=== PATIENT | female | born 1945 | race Caucasian/White ===

== ENCOUNTER → 2018-04-14 | Outpatient (CLI) | payer MEDICARE, OTHER ==
[~2018-04-14] MED LIST: ASPI81CH PO; ASPI81EC; CALCAVITD; CLOB.05TO; CONEST.625; CONEST.9 PO; Caltrate Plus1 EACH PO; Caltrate-600 W1 EACH PO; EPIPEN0.3 MG/0.3; FLUO.01TC; LEVOTHYROXINE; LEVSOD50 PO; MUPI1NAS; NITR100CA; PREMARIN
[2018-04-14 10:43] LABS: BASOPHILS ABSOLUTE AUTO 0.05 K/mm3 (0.00-0.23); BASOPHILS PERCENT AUTO 1 % (0-2); EOSINOPHILS ABSOLUTE AUTO 0.07 K/mm3 (0.00-0.68); EOSINOPHILS PERCENT AUTO 1 % (0-6); Hematocrit 45.4 % (33.0-51.0); Hemoglobin 15.2 g/dL (11.5-16.0); IMMATURE GRAN ABSOLUTE AUTO 0.03 K/mm3 (0.00-0.10); IMMATURE GRAN PERCENT AUTO 0 % (0-1); LYMPHOCYTES ABSOLUTE AUTO 2.28 K/mm3 (0.84-5.20); LYMPHOCYTES PERCENT AUTO 29 % (21-46); MONOCYTES ABSOLUTE AUTO 0.62 K/mm3 (0.16-1.47); MONOCYTES PERCENT AUTO 8 % (4-13); Mean Corpuscular HGB 30.5 pg (26.0-34.0); Mean Corpuscular HGB Conc 33.5 g/dL (31.5-36.5); Mean Corpuscular Volume 91 fL (80-100); Mean Platelet Volume 9.4 fL (9.1-12.4); NEUTROPHILS ABSOLUTE AUTO 4.79 K/mm3 (1.96-9.15); NEUTROPHILS PERCENT AUTO 61 % (41-73); Platelet Count 315 K/mm3 (150-400); RDW Coefficient Variation 13.7 % (11.7-14.2); RDW Standard Deviation 45.9 fL (35.1-46.3); Red Blood Cell Count 4.99 M/mm3 (3.80-5.20); White Blood Cell Count 7.84 K/mm3 (4.00-11.30)
[2018-04-14 10:57] LABS: Alanine Aminotransfer (ALT/SGP 21 U/L (12-78); Albumin, Blood 3.5 g/dL (3.4-5.0); Alk Phos 80 U/L (40-126); Anion Gap 7 mmol/L (6-16); Aspartate Aminotrans (AST/SGOT 12 U/L (12-37); Bilirubin, Total 0.2 mg/dL (0.1-1.0); Blood Urea Nitrogen 17 mg/dL (8-24); Bun/Creatinine Ratio 17.5 (12.0-20.0); CO2, Blood 29 mmol/L (21-32); Calcium, Blood 9.3 mg/dL (8.5-10.1); Chloride, Blood 105 mmol/L (98-108); Creatinine, Blood 0.97 mg/dL (0.40-1.00); Globulin, Blood 3.6 g/dL (2.2-4.0); Glomerular Filtration Rate 57 (60-); Glucose, Blood 102 mg/dL (70-99); Potassium, Blood 4.2 mmol/L (3.5-5.5); Sodium, Blood 141 mmol/L (136-145); Total Protein, Blood 7.1 g/dL (6.4-8.2)
[2018-04-14 10:58] LABS: Troponin I <0.017 ng/mL (0.000-0.040)
== END ==
LOC: LAB SHORT 10:39
PROVIDERS: Physician Assistant
DX: R07.9 Chest pain, unspecified (principal)
CPT/HCPCS: 80053; 83690; 84484; 85025; 85379; 85651

== ENCOUNTER → 2019-07-27 | Outpatient (CLI) | payer MEDICARE, OTHER ==
[2019-07-27 14:38] LABS: BASOPHILS ABSOLUTE AUTO 0.09 K/mm3 (0.00-0.23); BASOPHILS PERCENT AUTO 1 % (0-2); EOSINOPHILS PERCENT AUTO 3 % (0-6); Hematocrit 49.4 % (33.0-51.0); Hemoglobin 15.9 g/dL (11.5-16.0); IMMATURE GRAN PERCENT AUTO 1 % (0-1); LYMPHOCYTES ABSOLUTE AUTO 2.87 K/mm3 (0.84-5.20); LYMPHOCYTES PERCENT AUTO 36 % (21-46); MONOCYTES ABSOLUTE AUTO 1.74 K/mm3 (0.16-1.47); MONOCYTES PERCENT AUTO 22 % (4-13); Mean Corpuscular HGB 29.4 pg (26.0-34.0); Mean Corpuscular HGB Conc 32.2 g/dL (31.5-36.5); Mean Corpuscular Volume 92 fL (80-100); Mean Platelet Volume 10.1 fL (9.1-12.4); NEUTROPHILS ABSOLUTE AUTO 3.06 K/mm3 (1.96-9.15); NEUTROPHILS PERCENT AUTO 38 % (41-73); Platelet Count 353 K/mm3 (150-400); RDW Coefficient Variation 12.9 % (11.7-14.2); RDW Standard Deviation 43.5 fL (35.1-46.3); White Blood Cell Count 8.06 K/mm3 (4.00-11.30)
[2019-07-27 15:27] LABS: Alanine Aminotransfer (ALT/SGP 23 U/L (12-78); Albumin/Globulin Ratio 0.7 (0.8-1.8); Alk Phos 90 U/L (50-136); Anion Gap 8 mmol/L (6-16); Aspartate Aminotrans (AST/SGOT 7 U/L (12-37); Bilirubin, Total 0.2 mg/dL (0.1-1.0); Blood Urea Nitrogen 10 mg/dL (8-24); Bun/Creatinine Ratio 12.8 (12.0-20.0); CO2, Blood 27 mmol/L (21-32); Calcium, Blood 9.5 mg/dL (8.5-10.1); Chloride, Blood 104 mmol/L (98-108); Creatinine, Blood 0.78 mg/dL (0.40-1.00); Globulin, Blood 4.1 g/dL (2.2-4.0); Glomerular Filtration Rate >60 (60-); Glucose, Blood 94 mg/dL (70-99); Potassium, Blood 3.4 mmol/L (3.5-5.5); Sodium, Blood 139 mmol/L (136-145); Total Protein, Blood 7.1 g/dL (6.4-8.2)
== END | disposition home or self-care (01) ==
LOC: LAB EV 13:58 → LAB SHORT 13:58 → LAB 13:58
PROVIDERS: Physician Assistant
DX: R19.7 Diarrhea, unspecified (principal)
CPT/HCPCS: 0097U; 80053; 85025

== ENCOUNTER → 2022-01-08 | Outpatient (CLI) | payer MEDICARE, OTHER | LOC: LAB SHORT 12-08 07:06 → PLD 08:39 | DX: L30.9 Dermatitis, unspecified (principal) | CPT/HCPCS: 88312 ==

== ENCOUNTER → 2022-09-22 | Outpatient (CLI) | payer MEDICARE, OTHER | END | disposition home or self-care (01) | LOC: LAB 11:20 → LAB SHORT 11:20 | DX: N39.0 Urinary tract infection, site not specified (principal) | CPT/HCPCS: 87086 ==

== ENCOUNTER 2024-01-03 16:27 | Observation (INO) | payer MEDICARE, OTHER ==
[~2024-01-03] VITALS: Ht 167.6 cm; Wt 58.8 kg
[~2024-01-03 16:27] MED LIST changes: -Cefpodoxime Pr100 MG PO; -METO25 PO; -Nicoderm Cq1 EAC1 TOP; -TRAZ50 PO; -VISBIOME 112.51 EACH PO; -XARELTO20 MG PO
[2024-01-03 17:05] LABS: BASOPHILS ABSOLUTE AUTO 0.05 K/mm3 (0.00-0.23); BASOPHILS PERCENT AUTO 1 % (0-2); EOSINOPHILS ABSOLUTE AUTO 0.11 K/mm3 (0.00-0.68); EOSINOPHILS PERCENT AUTO 1 % (0-6); Hemoglobin 15.5 g/dL (11.5-16.0); IMMATURE GRAN ABSOLUTE AUTO 0.03 K/mm3 (0.00-0.10); IMMATURE GRAN PERCENT AUTO 0 % (0-1); LYMPHOCYTES ABSOLUTE AUTO 2.58 K/mm3 (0.84-5.20); LYMPHOCYTES PERCENT AUTO 26 % (21-46); MONOCYTES PERCENT AUTO 9 % (4-13); Mean Corpuscular HGB 28.8 pg (26.0-34.0); Mean Corpuscular HGB Conc 31.6 g/dL (31.5-36.5); Mean Corpuscular Volume 91 fL (80-100); Mean Platelet Volume 9.7 fL (9.1-12.4); NEUTROPHILS ABSOLUTE AUTO 6.24 K/mm3 (1.96-9.15); NEUTROPHILS PERCENT AUTO 63 % (41-73); Platelet Count 284 K/mm3 (150-400); RDW Coefficient Variation 15.6 % (11.7-14.2); RDW Standard Deviation 51.7 fL (35.1-46.3); Red Blood Cell Count 5.38 M/mm3 (3.80-5.20); White Blood Cell Count 9.91 K/mm3 (4.00-11.30)
[2024-01-03] MEDS ORDERED: dilTIAZem HCL 125 MG in Dextrose 5% 100 ML IV SCH (17:15)
[2024-01-03] MEDS ORDERED: Diltiazem HCl 5 MG / ML 5ML Vial IV ONE (17:15)
[2024-01-03 17:19] LABS: International Normalized Ratio 1.02; Prothrombin Time Results 10.7 Sec (9.7-11.5)
[2024-01-03 17:29] LABS: Albumin, Blood 3.5 g/dL (3.4-5.0); Bilirubin, Total 0.2 mg/dL (0.1-1.0); Bun/Creatinine Ratio 21.1 (12.0-20.0); Calcium, Blood 9.9 mg/dL (8.5-10.1); Creatinine, Blood 0.81 mg/dL (0.40-1.00); Globulin, Blood 3.5 g/dL (2.2-4.0); Potassium, Blood 3.9 mmol/L (3.5-5.5)
[2024-01-03] MEDS ORDERED: NS 1,000 ML IV ONE (17:33)
[2024-01-03 17:37] LABS: Magnesium, Blood 2.3 mg/dL (1.6-2.4)
[2024-01-03] MEDS ORDERED: TRAZ50 PO (17:39)
[2024-01-03 18:00] LABS: Thyroid Stimulating Hormone 1.99 uIU/mL (0.360-4.800)
[2024-01-03] MEDS ORDERED: CefTRIAXone Sodium 1,000 MG in NS 50 ML IV ONE (18:05)
[2024-01-03 18:34] LABS: Source, Urine Clean Catch
[2024-01-03 18:38] LABS: Appearance, Urine Clear (Clear); Bilirubin, Urine Neg (Neg); Blood, Urine Neg (Neg); Glucose Qualitative, Urine Neg (Neg); Ketones, Urine Neg (Neg); Leukocyte Esterase, Urine 1+ (Neg); Nitrite, Urine Neg (Neg); Protein, Urine Neg (Neg); Specific Gravity, Urine 1.015 (1.003-1.022); Urobilinogen, Urine NORM (Normal)
[2024-01-03 18:53] LABS: Color, Urine Pale Yellow (P-Yellow)
[2024-01-03 18:56] LABS: Bacteria Rare /hpf; Red Blood Cells, Urine Not Seen /hpf (0-2); Squamous Epithelial Cells Rare /hpf (Few)
[2024-01-03] MEDS ORDERED: FLU VACC QS2023-24(6MOS UP)/PF 60 MCG/0.5 ML SYRINGE IM SCH (19:10)
[2024-01-03] MEDS ORDERED: Metoprolol Tartrate 25 MG Tab PO SCH (21:00)
[2024-01-03] MEDS ORDERED: Lactobacil 2-S.Thermo-Bifido 1 1 Cap PO SCH (21:00)
[2024-01-03] MEDS ORDERED: Potassium Chl 20MEQ/Water100ML 100 ML IV STA (21:14)
[2024-01-03 21:30] VITALS: BP 118/44
[2024-01-03] MEDS ORDERED: NS 250 ML IV PRN (21:30)
[2024-01-03] MEDS ORDERED: TraZODone HCl 50 MG Tab PO SCH (22:00)
[2024-01-04] VITALS: BP 101/47
[2024-01-04 03:50] LABS: BASOPHILS ABSOLUTE AUTO 0.04 K/mm3 (0.00-0.23); BASOPHILS PERCENT AUTO 1 % (0-2); EOSINOPHILS ABSOLUTE AUTO 0.19 K/mm3 (0.00-0.68); EOSINOPHILS PERCENT AUTO 3 % (0-6); Hematocrit 40.7 % (33.0-51.0); Hemoglobin 12.9 g/dL (11.5-16.0); Mean Corpuscular HGB 28.4 pg (26.0-34.0); Mean Corpuscular HGB Conc 31.7 g/dL (31.5-36.5); Mean Corpuscular Volume 90 fL (80-100); Mean Platelet Volume 9.7 fL (9.1-12.4); Platelet Count 239 K/mm3 (150-400); RDW Coefficient Variation 15.5 % (11.7-14.2); RDW Standard Deviation 51.5 fL (35.1-46.3); Red Blood Cell Count 4.54 M/mm3 (3.80-5.20); White Blood Cell Count 7.41 K/mm3 (4.00-11.30)
[2024-01-04 03:54] LABS: IMMATURE GRAN ABSOLUTE AUTO 0.02 K/mm3 (0.00-0.10); IMMATURE GRAN PERCENT AUTO 0 % (0-1); LYMPHOCYTES ABSOLUTE AUTO 2.56 K/mm3 (0.84-5.20); LYMPHOCYTES PERCENT AUTO 35 % (21-46); MONOCYTES PERCENT AUTO 11 % (4-13); NEUTROPHILS PERCENT AUTO 51 % (41-73)
[2024-01-04 04:12] LABS: Bun/Creatinine Ratio 20.7 (12.0-20.0); Calcium, Blood 8.7 mg/dL (8.5-10.1); Creatinine, Blood 0.63 mg/dL (0.40-1.00)
[2024-01-04 04:14] VITALS: BP 115/48
--- NOTE | 2024-01-04 05:29 | NUR ---
SHIFT SUMMARY PT ARRIVED TO PCU AT 2119 VIA ER PATTI. PT A&O X4, ABLE TO TRANSFER INDEPENDENTLY TO HOSPITAL BED. GAIT MILDLY WEAK BUT STEADY AND PT TOLERATED WELL. PT ARRIVED ON CARDIZEM GTT, HOWEVER WAS IN NSR WHEN ARRIVED TO PCU, THIS RN PLACED CARDIZEM IN STANDBY, PT HAS REMAINED IN NSR WITH RATE IN 60 - 70'S. PT DENIES CP/PRESSURE, SOB, DIZZINESS, N/V. PT DOES REPORT THAT AT TIMES "I CAN FEEL MY HEART FLUTTER OR POUNDING" BUT STATES THIS HAS NOT HAPPENED SINCE BEING IN THE E.R. VSS THROUGHOUT SHIFT; SBP 100 - 120'S, AFEBRILE, RR WNL, SPO2 >95% ON RA. NO COUGH NOTED, PT DENIES. LS CLEAR T/O. PT UP TO BS TO VOID; REPORTS DYSURIA, FREQUENCY AND URGENCY. PT REPORT RECENT UTI AND TREATMENT "A FEW WEEKS AGO". OTHERWISE PT DENIES GI/ CONCERNS. NO ACUTE CHANGES. PT RESTING, ABLE TO VERBALIZE NEEDS. CALL LIGHT IN REACH, WILL UPDATE ONCOMING RN
[2024-01-04] MEDS ORDERED: Levothyroxine Sodium 0.025 MG Tab PO SCH (06:00)
[2024-01-04] MEDS ORDERED: Nicotine 14 MG PATCH TOP SCH (09:00)
[2024-01-04] MEDS ORDERED: CefTRIAXone Sodium 1,000 MG in NS 50 ML IV SCH (09:00)
[2024-01-04 09:36] VITALS: BP 125/53
[2024-01-04] MEDS ORDERED: Rivaroxaban 10 MG Tab PO SCH ×2 (09:55→18:00)
[2024-01-04 11:42] VITALS: BP 118/69; BP 188/69
[2024-01-04] MEDS ORDERED: Cefpodoxime Pr100 MG PO (14:32)
[2024-01-04] MEDS ORDERED: METO25 PO (14:33)
[2024-01-04] MEDS ORDERED: XARELTO20 MG PO (14:34)
[2024-01-04] MEDS ORDERED: Nicoderm Cq1 EAC1 TOP (14:34)
[2024-01-04] MEDS ORDERED: VISBIOME 112.51 EACH PO (14:35)
--- NOTE | 2024-01-04 15:30 | NUR ---
DISCHARGE this rn assumed care at 0700. vital signs stable. patient denies any chest pain/pressure, shortness of breath or pain. tele sr. see shift assessment for further detials. md jane in room this morning to discuss plan and possibly discharge pending echo results. echo results came back clear, and patient able to discharge. this rn educated the patient on new diganosis of afib, new medications, how to take medications and side effects of medications, medications faxed to [facility] with okay result they got them, and education on follow up with pcp. patient verbalized undertanding and taught this rn back. patient left with all personal belongings and in no distress
[2024-01-05] MEDS ORDERED: Rivaroxaban 10 MG Tab PO SCH (09:00)
== END 2024-01-04 15:21 | disposition home or self-care (01) ==
LOC: ER 16:27 → ERHOLD 16:28 → PCU 16:28 → ERHOLD 16:28 → PCU 21:16
PROVIDERS: Emergency Medicine; Family Medicine; Physician Assistant; ADMIT Internal Medicine
DX: I48.91 Unspecified atrial fibrillation (principal); E03.9 Hypothyroidism, unspecified; F17.210 Nicotine dependence, cigarettes, uncomplicated; G47.00 Insomnia, unspecified; J43.9 Emphysema, unspecified; Z66 Do not resuscitate; Z88.8 Allergy status to other drugs, medicaments and biological substances; Z79.899 Other long term (current) drug therapy; Z85.118 Personal history of other malignant neoplasm of bronchus and lung
CPT/HCPCS: 36415; 71046; 80048; 80053; 81001; 83735; 84443; 84484; 85025; 85610; 93005; 93010; 93306; 96365; 96366; 96368; 96376; 99285-25; A9270; J0696; J3480; J7030

== ENCOUNTER → 2024-01-03 | Outpatient (CLI) | payer MEDICARE, OTHER ==
[~2024-01-03] MED LIST changes: +Cefpodoxime Pr100 MG PO; +METO25 PO; +Nicoderm Cq1 EAC1 TOP; +TRAZ50 PO; +VISBIOME 112.51 EACH PO; +XARELTO20 MG PO
== END | disposition home or self-care (01) ==
LOC: LAB SHORT 17:49
DX: N30.01 Acute cystitis with hematuria (principal)
CPT/HCPCS: 87077; 87086; 87186